=== PATIENT | female | born 2000 | race African-American/Black ===

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

== ENCOUNTER 2023-07-08 20:12 | Emergency (ER) | payer OTHER ==
[~2023-07-08] VITALS: Ht 157.5 cm; Wt 72.6 kg
[~2023-07-08 20:12] MED LIST: ACET-2619 PO; IBUP-2213 PO
[2023-07-08 20:20] VITALS: BP 129/75; PULSE 77; RESP 16; TEMP 97.9; O2SAT 99
[2023-07-08] MEDS ORDERED: KETOROLAC 60 MG/2 ML VIAL IM ONE ×2 (20:25→20:55)
[2023-07-08 20:40] VITALS: PULSE 64; RESP 16; TEMP 98.3; O2SAT 99
[2023-07-08] MEDS ORDERED: PSEU120T22 PO (21:11)
[2023-07-08] MEDS ORDERED: IBUP-2213 PO (21:11)
[2023-07-08 21:43] VITALS: BP 111/74
== END 2023-07-08 21:43 | disposition home or self-care (01) ==
LOC: MED 20:12
DX: J06.9 Acute upper respiratory infection, unspecified (principal); H92.01 Otalgia, right ear; Z79.899 Other long term (current) drug therapy
CPT/HCPCS: 96372; 99283; J1885